=== PATIENT | male | born 1985 | race Caucasian/White ===

== ENCOUNTER 2016-10-28 17:55 | Emergency (ER) | payer MEDICAID ==
[2016-10-28] MEDS ORDERED: LORAZEPAM 0.5 MG TAB ONE (19:06)
== END 2016-10-28 21:45 | disposition home or self-care (01) ==
LOC: ER 17:55

== ENCOUNTER 2016-10-31 03:38 | Emergency (ER) | payer MEDICAID ==
[2016-10-31] MEDS ORDERED: ZIPRASIDONE 20 MG INJ IM ONE ×2 (04:00→05:33)
[2016-10-31] MEDS ORDERED: LIDOCAINE 1% MDV 0 ML ONE (04:03)
== END 2016-10-31 05:59 | disposition home or self-care (01) ==
LOC: ER 03:38
CPT/HCPCS: 36415; 71010; 80053; 82550; 85025; 93005